=== PATIENT | female | born 1960 | race Caucasian/White ===

== ENCOUNTER 2021-03-29 17:21 | Outpatient (CLI) | payer OTHER ==
--- NOTE | 2021-03-29 17:44 | XRAY Report ---
PROCEDURE: Abdomen Acute INDICATIONS: LEFT FLANK PAIN/HEMATURIA TECHNIQUE: One view chest and two views of the abdomen were acquired. COMPARISON: None. FINDINGS: Surgical changes and devices: None. Chest: Lungs are clear. Heart size is normal. No pleural effusions. No pneumoperitoneum. Abdomen: Bowel gas pattern is normal. No suspicious calcifications. Visualized solid organ contour s appear normal. Bones: No suspicious bony lesions. IMPRESSION: No acute finding. No renographic evidence of urinary tract calculus. Reviewed by: Camacho Phelan MD on 03/29/2021 5:43 PM PDT Approved by: Camacho Phelan MD on 03/29/2021 5:43 PM PDT Station ID: [id number]
== END 2021-03-29 23:59 | disposition home or self-care (01) ==
LOC: DI.S 17:21
PROVIDERS: ATTEND Physician Assistant Medical
DX: R31.9 Hematuria, unspecified (principal); R10.9 Unspecified abdominal pain